=== PATIENT | female | born 1965 | race African-American/Black ===

== ENCOUNTER → 2017-06-30 10:20 | Outpatient (CLI) | payer BC, SELFPAY ==
--- NOTE | 2017-06-30 | CA_ITS ---
PROCEDURE: 2-D M-mode and color Doppler study INDICATIONS FOR THE TEST: Chest pain+ COPD Heart Murmur+ Tobacco Smoking Palpitations+ Fatigue Syncope Edema Hypertension Diabetes Mellitus Rheumatic Fever SOB CARSON Obesity Hyperlipidemia Family History HD Additional History dizziness, hx of mild AI PATIENT INFORMATION HEIGHT: 59 WEIGHT: 120 GENDER: Female B/P: 108/72 2-D/M-MODE INTERPRETATION: 2-D MEASUREMENTS OBSERVED VALUES IN CMS Right Ventricular Dimension (RVDd) 2.5 Interventricular Septum (Thickness)(IVsd) 0.9 Left Ventricular Internal Dimensions(LVIDd) 4.1 Left Ventricular Posterior Wall (Thickness)(LVPWd) 0.8 Aortic Root 3.1 Aortic Cusp Separation 2.2 Left Atrial Dimensions (LAD) 2.9 2D 1. Left atrium is normal size, left ventricle is normal size, there is no concentric left ventricular hypertrophy, visually estimated ejection fraction 55% with no obvious regional wall motion abnormality. 2. The right atrium and right ventricle are relatively normal size and function. 3. The aortic valve morphology is not well visualized, leaflets are minimally thickened and calcified leaflet continue to display good mobility. 4. The mitral and tricuspid valvular grossly normal. 5. The pulmonic valve is poorly visualized. 6. No significant pericardial effusion noted. DOPPLER INTERROGATION: Doppler interrogation of the aortic, mitral and tricuspid valvular presence of mild aortic, mild mitral and tricuspid regurgitation, tricuspid and jet velocity is insufficient for calculation of the right ventricular systolic pressure, diastolic parameters are inconclusive. CONCLUSION: 1. Normal left ventricular size, preserved left ventricular systolic function, visually estimated ejection fraction 55% with no signal wall motion abnormality. Diastolic parameters are inconclusive. 2. Mild aortic, mild mitral and tricuspid regurgitation 3. No significant pericardial effusion noted.
== END ==
PROVIDERS: Family Provider Family Medicine; PCP Family Medicine; Visit Provider Family Medicine
DX: I35.1 Nonrheumatic aortic (valve) insufficiency (principal)
CPT/HCPCS: 93306

== ENCOUNTER → 2017-09-08 09:24 | Outpatient (CLI) | payer BC, SELFPAY ==
--- NOTE | 2017-09-08 09:27 | MM_ITS ---
MM Dig screening mamm BI w/CAD CAD Screening COMPARISON: Digital mammograms with CAD 04/14/2016 and 02/27/2015 INDICATION: There is no personal or family history of breast cancer TECHNIQUE: Standard CC and MLO images were obtained. R2 CAD reviewed. FINDINGS: Moderate diffuse fibroglandular densities are seen in both breasts. There is a benign-appearing calcification left breast. There are stable tiny nodular densities in each breast. There is no new or suspicious lesion in either breast and there are no suspicious microcalcifications. There are stable small nodes in both axilla. IMPRESSION: Stable exam with no suspicious lesion seen BI-RADS Category: 2 Benign Finding(s) RECOMMENDED FOLLOW-UP: 1YR - 1 YEAR FOLLOW-UP (A letter has been sent to the patient regarding results of the study.)
== END ==
PROVIDERS: Family Provider Family Medicine; PCP Family Medicine; Visit Provider Nurse Practitioner Obstetrics & Gynecology
DX: Z12.31 Encounter for screening mammogram for malignant neoplasm of breast (principal)
CPT/HCPCS: 77067

== ENCOUNTER → 2020-03-29 12:15 | Outpatient (CLI) | payer BC, SELFPAY | PROVIDERS: PCP Family Medicine; Visit Provider Family Medicine | DX: R00.2 Palpitations (principal); I35.1 Nonrheumatic aortic (valve) insufficiency; I34.0 Nonrheumatic mitral (valve) insufficiency | CPT/HCPCS: 93225; 93226 ==

== ENCOUNTER → 2020-04-05 08:16 | Outpatient (CLI) | payer BC, SELFPAY ==
--- NOTE | 2020-04-05 08:20 | CA_ITS ---
APPROVED REPORT EXAM: Comprehensive 2D, Doppler, and color-flow Echocardiogram [employer] Loss Prevention Officer: Maribel Botello RT(R) Ht: 4 ft 11 in Wt: 130lbs BSA: 1.54 BP: 120/70 mmHg Indications: murmur, palpitations, dizziness, chest discomfort, mild AI 2D Dimensions LVOT 1.73 cm (M/F) 1.5-2.5 M-Mode Dimensions RVDd 2.73 cm (0.9-2.6) LA Diam 3.19 cm (1.9-4.0) LVDd 3.63 cm (3.5-5.7) Ao Diam 2.80 cm (2.0-3.7) LVDs 2.45 cm (3.5-5.7) IVSd 0.75 cm (0.6-1.1) PWd 0.84 cm (0.6-1.1) EF (Teich) 61.80% FS 32.50% EDV (Teich) 55.50 mL ESV (Teich) 21.20 mL LV Diastology E Decel Time 150.00 (160-240 msec) E/A Ratio 0.7 MED E' 8.00 (< 7 cm/sec) E'/MED E' Ratio 9.34 (>14) LAT E' 12.30 (<10 cm/sec) E/LAT E' Ratio 6.07 (>14) Mitral Valve MV E Max Delta. 75.00 (40-130 cm/s) MV A Velocity 113.00 (40-130 cm/s) E/A Ratio 0.66 MV Decel. Time 150.00 (160-240 ms) MV PHT 44.00 ms Tricuspid Valve TR P. Velocity 178.00 cm/s RAP Estimate 10.00 mmHg RVSP 22.70 mmHg Left Ventricle Left atrium is mildly enlarged, left ventricle is normal size, mild concentric left ventricular hypertrophy, visually estimated ejection fraction 55% with no obvious regional wall motion abnormality. Grade 1 diastolic dysfunction seen without tissue Doppler evidence of raise left atrial pressure. Right Ventricle Right atrium and right ventricle are normal size and contractility. Aortic Valve Aortic valve is minimally thickened and calcified leaflet continue to display good mobility, there is no aortic stenosis, this is study fails to identify any aortic insufficiency. Mitral Valve Mitral valve is grossly normal, there is trace mitral regurgitation. Tricuspid Valve Tricuspid valve is grossly normal, there is trace tricuspid regurgitation, tricuspid regurgitation jet velocity is inadequate for calculation of the right ventricular systolic pressure. Pulmonic Valve Pulmonic valve is poorly visualized. Great Vessels Aortic root is normal size. Pericardium No significant pericardial effusion noted. Conclusion 1. Normal left ventricular size, mild concentric left ventricular hypertrophy, visually estimated ejection fraction 55% with no regional wall motion abnormality, Doppler evidence of grade 1 diastolic dysfunction without tissue Doppler evidence of raise left atrial pressure. 2. Minimally thickened and calcified aortic valve without aortic stenosis, this is study fails to identify any aortic insufficiency. 3. Trace mitral and tricuspid regurgitation. 4. No significant pericardial effusion noted. Electronically signed by : Marvin Copeland, 04/05/2020 11:07:50
== END ==
PROVIDERS: PCP Family Medicine; Visit Provider Family Medicine
DX: R00.2 Palpitations (principal); I35.1 Nonrheumatic aortic (valve) insufficiency; I34.0 Nonrheumatic mitral (valve) insufficiency
CPT/HCPCS: 93306

== ENCOUNTER → 2020-07-12 08:47 | Outpatient (CLI) | payer BC, SELFPAY ==
--- NOTE | 2020-07-12 08:51 | MM_ITS ---
PROCEDURE INFORMATION: Exam: MG Screening 3D Mammography Exam date and time: 07/12/2020 8:51 AM Age: 54 years old Clinical indication: Screening exam; No personal or family HX of malignancy TECHNIQUE: Imaging protocol: Screening tomosynthesis and 2D mammography including computer-aided detection (CAD) when performed. COMPARISON: 1. MG SCBI MM Dig screening mamm BI w/CAD 09/08/2017 9:41 AM 2. MG DMSB DIG MAMM-SCREEN SURESH W/CAD 04/14/2016 8:57 AM FINDINGS: MAMMOGRAPHY: Breast composition: The breast tissue is composed of scattered areas of fibroglandular density. Mass: None. Architectural distortion: None. Calcifications: No suspicious calcifications. Asymmetric density: None. Skin thickening: None. Axillary adenopathy: None. IMPRESSION: No mammographic evidence of malignancy. Annual screening is recommended unless otherwise clinically indicated. ASSESSMENT: BI-RADS Category 1: Negative
== END ==
PROVIDERS: PCP Family Medicine; Visit Provider Nurse Practitioner Obstetrics & Gynecology
DX: Z12.31 Encounter for screening mammogram for malignant neoplasm of breast (principal)
CPT/HCPCS: 77063; 77067

== ENCOUNTER → 2020-07-18 10:41 | Outpatient (CLI) | payer BC, SELFPAY ==
--- NOTE | 2020-07-18 10:46 | US_ITS ---
PROCEDURE: US EXTREMITY LT LIMITED CLINICAL INDICATION: PAIN,SWELLING IN LT ARMPIT COMPARISON: MG SCBI MM Dig screening mamm BI w/CAD from 09/08/2017 MG MM DIG SCREENING MAMM BI W/CAD from 07/12/2020 FINDINGS: Ultrasound is performed of the left axilla demonstrating multiple small lymph nodes measuring up to 18 mm in length. At least 4 nodes are demonstrated 2 of which shows some mild thickening of the cortex measuring up to 4 mm in 1 node which is 15 mm in length. No abnormal fluid collections. No soft tissue mass is demonstrated. IMPRESSION: Small left axillary lymph nodes are present as described above. Has the patient had a recent Covid19 vaccination on the left? CT with contrast of the chest may provide further evaluation for possible axillary adenopathy. Dictated by: Bony Avelar MD 07/18/2020 12:49 Bony Avelar MD in [place] 07/18/2020 12:49
== END ==
PROVIDERS: PCP Family Medicine; Visit Provider Family Medicine
DX: R52 Pain, unspecified (principal); M79.89 Other specified soft tissue disorders
CPT/HCPCS: 76882

== ENCOUNTER → 2021-08-06 08:11 | Outpatient (CLI) | payer BC, SELFPAY ==
--- NOTE | 2021-08-06 08:15 | US_ITS ---
FINAL REPORT CLINICAL HISTORY: UPPER ABD. PAIN NAUSEA FINDINGS: Sonographic images of the abdomen were obtained. The liver has an unremarkable appearance with normal echogenicity. The gallbladder has an unremarkable appearance without evidence of gallstones. There is a trace amount of sludge in the gallbladder. There is no evidence of biliary ductal dilatation. The common hepatic duct measures 4 mm, which is within normal limits. The pancreas is partially obscured. The spleen size is normal. The right kidney measures 9.4 in length. The left kidney measures 8.2 in length. There is normal renal echogenicity. There is no evidence of hydronephrosis. The aorta has an unremarkable appearance. Limited images of the inferior vena cava are unremarkable. IMPRESSION: Unremarkable abdominal ultrasound with no acute abnormality identified. Reviewed, Interpreted and Dictated by Stevenson Hogan III, MD Transcribed by Sheila Yeager Authenticated by Stevenson Hogan III, MD on 08/06/2021 10:56:30 AM [facility]
== END ==
PROVIDERS: PCP Nurse Practitioner Family; Visit Provider Nurse Practitioner Family
DX: R10.10 Upper abdominal pain, unspecified (principal); R11.0 Nausea
CPT/HCPCS: 76700

== ENCOUNTER 2023-11-09 11:30 | Outpatient (CLI) | payer BC, SELFPAY ==
[2023-11-09 12:14] LABS: Basophils # 0.1 K/mm3 (0-0.2); Basophils % 1.4 % (0.1-2.0); Eosinophils # 0.2 K/mm3 (0.0-0.4); Eosinophils % 4.8 % (0.1-12.0); Hematocrit 40.4 % (37.0-47.0); Hemoglobin 11.6 g/dL (12.2-16.2); Lymphocytes # 2.8 K/mm3 (0.7-4.5); Lymphocytes % 54.8 % (10-50); Mean Corpuscular HGB Conc 28.8 g/dL (31.8-35.4); Mean Corpuscular Volume 83.4 fl (81-99); Mean Platelet Volume 8.8 fl (7.4-10.4); Monocytes # 0.2 K/mm3 (0.1-1.0); Monocytes % 3.4 % (1.7-9.3); Neutrophils # 1.8 K/mm3 (1.8-7.8); Neutrophils % 35.5 % (37.0-80.0); Platelet Count 271 K/mm3 (142-424); Red Blood Count 4.84 M/mm3 (4.20-5.40); Red Cell Distribution Width 13.1 % (11.5-17.5)
[2023-11-09 12:18] LABS: MANUAL DIFFERENTIAL MANUAL DIFFERENTIAL (MANUAL DIFF)
[2023-11-09 12:34] LABS: Eosinophils % 3 % (0-3); Hypochromasia 3+; Lymphocytes % 52 % (10-50); Monocytes % 7 % (2-9); Neutrophils % 33 % (42-76); Nucleated Red Blood Cells 2; Platelet Estimate Normal; Total Cells Counted 100
[2023-11-09 12:47] LABS: Alanine Aminotransferase 19 U/L (12-78); Albumin/Globulin Ratio 1.3 (1.1-1.8); Alkaline Phosphatase 53 U/L (38-126); Aspartate Amino Transferase 27 U/L (14-36); Bilirubin,Total 0.6 mg/dl (0.2-1.3); Blood Urea Nitrogen 11 mg/dl (7-17); Calcium 9.4 mg/dl (8.4-10.2); Carbon Dioxide 27 mmol/L (22.0-30.0); Chloride 106 mmol/L (98-107); Chol/HDL Ratio 3.3 (1-3.5); Cholesterol 196 mg/dl (140-200); Estimated Glomerular Filt Rate 103 ml/min (>60); GFR (African American) 125 ML/MIN (>60); Glucose 96 mg/dl (74-100); HDL Cholesterol 59 mg/dl (40-60); Potassium 3.9 mmoL/L (3.5-5.1); Triglycerides 85 mg/dl (30-150); VLDL Cholesterol 17 mg/dL (0-40)
[2023-11-09 12:54] LABS: Anion Gap 8.9 mEq/L (5-15); Sodium 138 mmol/L (136-145)
[2023-11-09 12:59] LABS: Direct LDL Cholesterol 106.71 mg/dL (100-129)
[2023-11-09 13:05] LABS: Free Thyroxine Index 3.1 ug/dL (5.93-13.13); T4 (Thyroxine) 10.4 ug/dl (5.53-11.0); Triiodothryronine (T3) Uptake 30 % (23.5-40.5)
[2023-11-09 13:18] LABS: Thyroid Stimulating Hormone 1.18 uIU/mL (0.465-4.68)
== END 2023-11-09 23:59 | disposition home or self-care (01) ==
LOC: LAB 11:32
PROVIDERS: PCP Family Medicine; Visit Provider Nurse Practitioner Obstetrics & Gynecology
DX: Z01.419 Encounter for gynecological examination (general) (routine) without abnormal findings (principal)
CPT/HCPCS: 36415; 80050; 80053; 80061; 84436; 84443; 84479; 85007; 85025